=== PATIENT | male | born 1975 | race Caucasian/White ===

== ENCOUNTER 2017-09-30 18:47 | Emergency (ER) | payer SELFPAY ==
[~2017-09-30] VITALS: Ht 177.8 cm; Wt 68.5 kg
[2017-09-30 18:51] VITALS: Ht 177.8 cm; Wt 68.5 kg
[2017-09-30 20:55] VITALS: BP 146/91
== END 2017-09-30 20:55 | disposition home or self-care (01) ==
LOC: ED 18:47
DX: M25.552 Pain in left hip (principal); L03.031 Cellulitis of right toe
CPT/HCPCS: J1885

== ENCOUNTER 2018-06-04 13:06 | Emergency (ER) | payer OTHER ==
[~2018-06-04] VITALS: Ht 175.3 cm; Wt 68.6 kg
[2018-06-04 13:51] VITALS: BP 158/104; Ht 175.3 cm; Wt 68.6 kg
== END 2018-06-04 15:22 | disposition home or self-care (01) ==
LOC: ED 13:06
DX: L03.116 Cellulitis of left lower limb (principal); M21.612 Bunion of left foot; L71.9 Rosacea, unspecified; I10 Essential (primary) hypertension; E11.9 Type 2 diabetes mellitus without complications; E78.00 Pure hypercholesterolemia, unspecified
CPT/HCPCS: J0696; Q0092

== ENCOUNTER 2019-07-19 08:18 | Emergency (ER) | payer OTHER ==
[~2019-07-19] VITALS: Ht 170.2 cm; Wt 66.7 kg
[2019-07-19 08:28] VITALS: Ht 170.2 cm; Wt 66.7 kg
[2019-07-19 09:25] LABS: microscopic required? NO
[2019-07-19 09:33] LABS: BASOPHIL % 0.3 % (0-2); PLATELET COUNT 312 x10^3mcL (130-400)
[2019-07-19 09:33] LABS: urine erythrocyte NEGATIVE (NEGATIVE)
[2019-07-19 09:40] LABS: CALCIUM 9.1 mg/dL (8.5-10.1); CARBON DIOXIDE 29.1 mmol/L (21-32); CHLORIDE SERUM 99 mmol/L (98-107); CREATININE SERUM 0.7 mg/dL (0.7-1.3); GFR1 > 60 mL/min; GLUCOSE SERUM 361 mg/dL (74-106); POTASSIUM SERUM 3.7 mmol/L (3.5-5.1); SODIUM SERUM 134 mmol/L (136-145)
[2019-07-19 09:44] LABS: ALBUMIN 3.9 g/dL (3.4-5.0); ALKALINE PHOSPHATASE 102 U/L (46-116); ALT/SGPT 26 U/L (16-63); AST/SGOT 15 U/L (15-37); BILIRUBIN TOTAL 0.34 mg/dL (0.20-1.00); LIPASE 113 IU/L (73-393)
[2019-07-19 11:17] VITALS: BP 151/97
== END 2019-07-19 11:17 | disposition home or self-care (01) ==
LOC: ED 08:18
PROVIDERS: Emergency Medicine
DX: K59.00 Constipation, unspecified (principal); E11.65 Type 2 diabetes mellitus with hyperglycemia; I10 Essential (primary) hypertension; F15.10 Other stimulant abuse, uncomplicated; E78.00 Pure hypercholesterolemia, unspecified
CPT/HCPCS: 36415

== ENCOUNTER 2020-03-20 02:30 | Emergency (ER) | payer OTHER, SELFPAY ==
[~2020-03-20] VITALS: Ht 175.3 cm; Wt 63.7 kg
[2020-03-20 02:33] VITALS: Ht 175.3 cm; Wt 63.7 kg
[2020-03-20 04:07] LABS: BASOPHIL % 0.3 % (0-2); PLATELET COUNT 436 x10^3mcL (130-400); RED CELL DISTRIBUTION WIDTH 12.7 % (11.5-14.5)
[2020-03-20 04:18] LABS: CALCIUM 9.1 mg/dL (8.5-10.1); CARBON DIOXIDE 30.9 mmol/L (21-32); CHLORIDE SERUM 98 mmol/L (98-107); CREATININE SERUM 0.6 mg/dL (0.7-1.3); GFR1 > 60 mL/min; GLUCOSE SERUM 314 mg/dL (74-106); POTASSIUM SERUM 4.2 mmol/L (3.5-5.1); SODIUM SERUM 136 mmol/L (136-145)
[2020-03-20 05:17] VITALS: BP 139/77
== END 2020-03-20 05:15 | disposition home or self-care (01) ==
LOC: ED 02:30
PROVIDERS: Emergency Medicine
DX: E11.621 Type 2 diabetes mellitus with foot ulcer (principal); B34.9 Viral infection, unspecified; I10 Essential (primary) hypertension; E11.9 Type 2 diabetes mellitus without complications; E78.00 Pure hypercholesterolemia, unspecified
CPT/HCPCS: Q0092; U0003